=== PATIENT | female | born 2000 | race Caucasian/White ===

== ENCOUNTER 2021-05-06 21:53 | Emergency (ER) | payer BC ==
[~2021-05-06 21:53] MED LIST: BENADRYL25 MG PO; FLEXERIL 10 MG10 MG PO; NORCO 5-325 TA1 EACH PO; PREDNISONE 50 M50 MG PO; ZANTAC 150 MG150 MG PO
[2021-05-07 01:22] LABS: HEMOGLOBIN 13.7 gm/dl (12.3-15.3); RED BLOOD COUNT 4.61 M/UL (4.00-5.10); WHITE BLOOD COUNT 11.6 K/UL (4.5-11.0)
[2021-05-07 01:46] LABS: BUN/CREATININE RATIO 18 (0-10)
[2021-05-07] MEDS ORDERED: US of Gallbladder (02:19)
== END 2021-05-07 02:25 | disposition home or self-care (01) ==
LOC: ER1 21:53
PROVIDERS: Physician Assistant
DX: R11.2 Nausea with vomiting, unspecified (principal); R10.11 Right upper quadrant pain; R42 Dizziness and giddiness; Z86.73 Personal history of transient ischemic attack (TIA), and cerebral infarction without residual deficits; Z90.89 Acquired absence of other organs
CPT/HCPCS: 80053; 81001; 82150; 83690; 84703; 85025; 87086; 99284

== ENCOUNTER → 2021-05-11 | Outpatient (CLI) | payer BC, OTHER ==
[~2021-05-11] MED LIST changes: +US of Gallbladder
== END ==
LOC: US 07:34
DX: R10.11 Right upper quadrant pain (principal)
CPT/HCPCS: 76705

== ENCOUNTER 2022-03-27 08:09 | Observation (INO) | payer BC ==
[~2022-03-27] VITALS: Ht 165.1 cm; Wt 9.1 kg
[2022-03-27 08:55] LABS: HEMOGLOBIN 11.9 gm/dl (12.3-15.3); RED BLOOD COUNT 4.75 M/UL (4.00-5.10); WHITE BLOOD COUNT 7.7 K/UL (4.5-11.0)
[2022-03-27 09:22] LABS: BUN/CREATININE RATIO 18 (0-10)
[2022-03-27] MEDS ORDERED: ZYRTEC10 MG PO (11:18)
[2022-03-27] MEDS ORDERED: PRILOSEC OTC20 MG PO (11:18)
[2022-03-27] MEDS ORDERED: QVAR REDIHALE10.6 G1 INH (11:19)
[2022-03-28 06:36] LABS: HEMOGLOBIN 11.3 gm/dl (12.3-15.3); RED BLOOD COUNT 4.43 M/UL (4.00-5.10)
[2022-03-28 06:38] LABS: WHITE BLOOD COUNT 18.1 K/UL (4.5-11.0)
[2022-03-28 06:58] LABS: BUN/CREATININE RATIO 24 (0-10)
[2022-03-29 06:28] LABS: RED BLOOD COUNT 4.38 M/UL (4.00-5.10)
[2022-03-29 06:35] LABS: WHITE BLOOD COUNT 11.7 K/UL (4.5-11.0)
[2022-03-29 06:53] LABS: BUN/CREATININE RATIO 17 (0-10)
[2022-03-30 05:36] LABS: HEMOGLOBIN 11.5 gm/dl (12.3-15.3); RED BLOOD COUNT 4.55 M/UL (4.00-5.10); WHITE BLOOD COUNT 11.8 K/UL (4.5-11.0)
[2022-03-30 07:06] LABS: BUN/CREATININE RATIO 30 (0-10)
[2022-03-30] MEDS ORDERED: PROAIR HFA8.5 GM INH (17:32)
[2022-03-30] MEDS ORDERED: HUMIBID LA TAB600 MG PO (17:32)
[2022-03-30] MEDS ORDERED: SYMBICORT 160-1 INHA INH (17:32)
[2022-03-30] MEDS ORDERED: MEDROL DOSEPAK 24 MG PO (17:34)
== END 2022-03-30 18:02 | disposition home or self-care (01) ==
LOC: ER1 08:09 → MED SURG 4 10:43 → CDU 10:43 → MED SURG 4 12:26
PROVIDERS: Emergency Medicine; Internal Medicine; Physician Assistant Medical; ADMIT Internal Medicine
DX: J45.901 Unspecified asthma with (acute) exacerbation (principal); J18.9 Pneumonia, unspecified organism; R07.81 Pleurodynia; Z79.899 Other long term (current) drug therapy; Z20.822 Contact with and (suspected) exposure to COVID-19
CPT/HCPCS: ECHO; 0240U; 36415; 71045; 71046; 71275; 80048; 80053; 82550; 82553; 82962; 83735; 84484; 84703; 85025; 85027; 85379; 87040; 93005; 93306; 94640; 94664; 94760; 96374; 96375; 99285; G0378; J0696; J2930; J7030; Q9967

== ENCOUNTER → 2022-04-10 | Outpatient (CLI) | payer BC ==
[~2022-04-10] MED LIST changes: +HUMIBID LA TAB600 MG PO; +MEDROL DOSEPAK 24 MG PO; +PRILOSEC OTC20 MG PO; +PROAIR HFA8.5 GM INH; +QVAR REDIHALE10.6 G1 INH; +SYMBICORT 160-1 INHA INH; +ZYRTEC10 MG PO
== END ==
LOC: HEART 5 13:27
DX: R06.02 Shortness of breath (principal); R09.1 Pleurisy
CPT/HCPCS: 94010; 94729; 95012

== ENCOUNTER → 2022-05-01 | Outpatient (CLI) | payer SELFPAY | LOC: KOH-I 13:32 | DX: J45.909 Unspecified asthma, uncomplicated (principal); R93.89 Abnormal findings on diagnostic imaging of other specified body structures; L70.9 Acne, unspecified | CPT/HCPCS: 71046 ==